=== PATIENT | male | born 1960 | race Caucasian/White ===

== ENCOUNTER → 2018-05-16 | Outpatient (CLI) | payer BC ==
[~2018-05-16] MED LIST: HYDR12.58 PO; LISI-167 PO; MELO7.5T31 PO; OMEG-76 PO; VITAMIN D3 GUMMY PO
[2018-05-16 14:59] LABS: INTERNATIONAL NORMALIZED RATIO 1.02 (0.93-1.1); PROTHROMBIN TIME 10.5 Seconds (9.6-11.5)
[2018-05-16 15:00] LABS: MICROSCOPIC NOT IND
[2018-05-16 15:01] LABS: BASOPHILS # (AUTO) 0.03 x10^3/uL (0-0.1); BASOPHILS % (AUTO) 0 % (0-1); EOSINOPHILS # (AUTO) 0.05 x10^3/uL (0-0.4); EOSINOPHILS % (AUTO) 1 % (1-7); LYMPHOCYTES # (AUTO) 1.79 x10^3/uL (1-3.4); LYMPHOCYTES % (AUTO) 24 % (22-44); MD NO; MEAN CORPUSCULAR HEMOGLOBIN 31.6 pg (27.5-34.5); MEAN CORPUSCULAR HGB CONC 34.6 g/dL (33.2-36.2); MEAN CORPUSCULAR VOLUME 91.3 fL (81-97); MEAN PLATELET VOLUME 8.4 fL (7.4-10.4); MONOCYTES # (AUTO) 0.58 x10^3/uL (0.2-0.8); MONOCYTES % (AUTO) 8 % (2-9); NEUTROPHILS # (AUTO) 4.95 x10^3/uL (1.8-6.8); NEUTROPHILS % (AUTO) 67 % (42-75); PLATELET COUNT 244 x10^3/uL (130-400); RED CELL DISTRIBUTION WIDTH 12.4 % (9.4-14.8)
[2018-05-16 15:03] LABS: CHLORIDE 103 mmol/L (98-107)
[2018-05-16 15:04] LABS: ALBUMIN 4.5 g/dL (3.4-5.0); ANION GAP 5 mmol/L (5-15); CALCIUM 9.2 mg/dL (8.5-10.1)
[2018-05-16 15:05] LABS: CULTURE INDICATED? NO
[2018-05-16 15:08] LABS: ALANINE AMINOTRANSFERASE 50 U/L (12-78); ALKALINE PHOSPHATASE 72 U/L (45-117); BILIRUBIN,TOTAL 0.9 mg/dL (0.2-1.0); CREATININE 1.25 mg/dL (0.7-1.3); TOTAL PROTEIN 7.9 g/dL (6.4-8.2)
[2018-05-16 16:24] LABS: HEMOGLOBIN A1C 5.4 % (4.2-6.3)
== END | disposition home or self-care (01) ==
LOC: STAR 13:37
PROVIDERS: ATTEND Orthopaedic Surgery
DX: Z01.818 Encounter for other preprocedural examination (principal); M16.12 Unilateral primary osteoarthritis, left hip
CPT/HCPCS: 36415; 80053; 81003; 83036; 85025; 85610; 85730; 87081; 87806; 93005; G0475

== ENCOUNTER 2018-06-05 05:20 | Inpatient (IN) | payer BC ==
[2018-05-16 14:10] VITALS: BP 149/95
[~2018-06-05] VITALS: Ht 170.2 cm; Wt 87.0 kg
[2018-06-05] MEDS ORDERED: LACTATED RINGERS 1,000 ML IV SCH (05:45)
[2018-06-05] MEDS ORDERED: LIDOCAINE-MPF 1%, 2ML INFIL ONE (06:00)
[2018-06-05] MEDS ORDERED: GABAPENTIN 300 MG CAPSULE PO ONE (06:00)
[2018-06-05] MEDS ORDERED: ACETAMINOPHEN 500 MG TABLET PO ONE (06:00)
[2018-06-05] MEDS ORDERED: TRANEXAMIC ACID 100 MG/ML, 10ML ONE ×4 (06:14)
[2018-06-05] MEDS ORDERED: KETOROLAC 60 MG/2 ML ONE (06:14)
[2018-06-05] MEDS ORDERED: ROPIvacaine/PF 0.2%, 20 ML ONE (06:14)
[2018-06-05] MEDS ORDERED: EPINEPHRINE 1 MG/ML, 1ML ONE (06:15)
[2018-06-05] MEDS ORDERED: LIDOCAINE GEL 2%, 5ML ONE ×2 (06:50→07:43)
[2018-06-05] MEDS ORDERED: MIDAZOLAM 1 MG/ML, 2ML ONE ×2 (06:52→08:45)
[2018-06-05] MEDS ORDERED: FENTANYL PF 250 MCG/5ML ONE (06:52)
[2018-06-05] MEDS ORDERED: TRANEXAMIC ACID 1,000 MG in SODIUM CHLORIDE 0.9% 100 ML IVPB ONE (07:00)
[2018-06-05] MEDS ORDERED: DIPHENHYDRAMINE 50 MG CAPSULE PO PRN (07:00)
[2018-06-05] MEDS ORDERED: SENNA/DOCUSATE TABLET PO PRN (07:00)
[2018-06-05] MEDS ORDERED: OXYcodone IR 5MG TABLET PO PRN (07:00)
[2018-06-05] MEDS ORDERED: ONDANSETRON 2MG/ML, 2ML IV PRN (07:00)
[2018-06-05] MEDS ORDERED: MAGNESIUM HYDROXIDE 8%, 30ML UDC PO PRN (07:00)
[2018-06-05] MEDS ORDERED: DIAZEPAM 5 MG TABLET PO PRN (07:00)
[2018-06-05] MEDS ORDERED: HYDROmorphone 2 MG/ML, 1ML IV PRN (07:00)
[2018-06-05] MEDS ORDERED: LABETALOL 5MG/ML, 20ML ONE (07:34)
[2018-06-05] MEDS ORDERED: ONDANSETRON 2MG/ML, 2ML ONE (07:42)
[2018-06-05] MEDS ORDERED: DEXAMETHASONE 4 MG/ML, 1ML ONE (07:42)
[2018-06-05] MEDS ORDERED: PROPOFOL 10 MG/ML, 20ML ONE (07:42)
[2018-06-05] MEDS ORDERED: ROCURONIUM 10MG/ML,5ML ONE (07:42)
[2018-06-05] MEDS ORDERED: NEOSTIGMINE 1 MG/ML, 10ML ONE (07:42)
[2018-06-05] MEDS ORDERED: GLYCOPYRROLATE 0.2MG/1ML, 5ML ONE (07:42)
[2018-06-05] MEDS ORDERED: CEFAZOLIN 1,000 MG ONE (07:42)
[2018-06-05] MEDS ORDERED: SUCCINYLCHOLINE 20 MG/ML, 10ML ONE (07:42)
[2018-06-05] MEDS ORDERED: ONDANSETRON ODT 8 MG ONE ×2 (07:43)
[2018-06-05] MEDS ORDERED: PROMETHAZINE 25 MG/ML, 1ML IV PRN (08:00)
[2018-06-05] MEDS ORDERED: METOCLOPRAMIDE 5 MG/ML, 2ML IV PRN (08:00)
[2018-06-05] MEDS ORDERED: OXYcodone 5 MG/5 ML ORAL.SOL UDC PO PRN (08:00)
[2018-06-05] MEDS ORDERED: LABETALOL 5MG/ML, 20ML IV PRN (08:00)
[2018-06-05] MEDS ORDERED: MEPERIDINE/PF 25MG/0.5ML IVPush PRN (08:00)
[2018-06-05] MEDS ORDERED: SCOPOLAMINE PATCH, 1.5MG PATCH.TD72 TD PRN (08:00)
[2018-06-05] MEDS ORDERED: HYDROmorphone 1 MG/ML, 1ML IV PRN (08:00)
[2018-06-05] MEDS ORDERED: EPHEDRINE 50 MG/ML, 1ML IM PRN (08:00)
[2018-06-05] MEDS ORDERED: ALBUTEROL/IPRATROPIUM 2.5MG/0.5MG, 3 ML NPPB PRN (08:00)
[2018-06-05] MEDS ORDERED: MORPHINE SULFATE 4 MG/ML, 1ML IVPush PRN (08:00)
[2018-06-05] MEDS ORDERED: hydrALAzine 20 MG/ML, 1ML IV PRN (08:00)
[2018-06-05] MEDS ORDERED: MIDAZOLAM 1 MG/ML, 2ML IV PRN (08:00)
[2018-06-05] MEDS ORDERED: ONDANSETRON ODT 8 MG PO PRN (08:00)
[2018-06-05] MEDS ORDERED: FENTANYL PF 100 MCG/2ML ONE (08:40)
[2018-06-05] MEDS: FENTANYL PF 100 MCG/2ML IV PRN ×2 (08:42→08:55)
[2018-06-05] MEDS ORDERED: HYDROmorphone 2 MG/ML, 1ML ONE (08:45)
[2018-06-05] MEDS ORDERED: OXYcodone 5 MG/5 ML ORAL.SOL UDC ONE (09:16)
[2018-06-05] MEDS ORDERED: METOCLOPRAMIDE 5 MG/ML, 2ML ONE (09:34)
[2018-06-05 10:46] VITALS: BP 123/82
[2018-06-05 12:30] VITALS: BP 115/70
[2018-06-05] MEDS: D5%-0.45NACL+KCL 20MEQ 1,000 ML IV SCH ×3 (12:57→21:28)
[2018-06-05] MEDS: TAMSULOSIN 0.4 MG CAP.ER.24H PO SCH (15:33)
[2018-06-05] MEDS: CEFAZOLIN PMX 1GM/50ML 50 ML IVPB SCH (15:34)
[2018-06-05] MEDS: DOCUSATE 100 MG CAPSULE PO SCH ×2 (15:35→20:06)
[2018-06-05] MEDS: ASPIRIN 81 MG TABLET EC PO SCH (18:40)
[2018-06-05 20:01] VITALS: BP 129/86
[2018-06-05] MEDS: ACETAMINOPHEN 650 MG/20.3 ML UDC PO PRN (20:06)
[2018-06-05] MEDS: ALUMINUM/MAG/SIMETHICONE 30 ML UDC PO PRN (20:17)
[2018-06-06 00:03] VITALS: BP 129/67
[2018-06-06] MEDS: CEFAZOLIN PMX 1GM/50ML 50 ML IVPB SCH (00:23)
[2018-06-06] MEDS: ACETAMINOPHEN 650 MG/20.3 ML UDC PO PRN ×2 (00:23→04:08)
[2018-06-06 04:19] VITALS: BP 138/86
[2018-06-06] MEDS ORDERED: DEXAMETHASONE 4 MG/ML, 1ML IVPush SCH (06:00)
[2018-06-06] MEDS: ASPIRIN 81 MG TABLET EC PO SCH ×2 (06:34→17:12)
[2018-06-06] MEDS: ONDANSETRON 4 MG TABLET PO PRN ×2 (06:40→21:12)
[2018-06-06 07:53] VITALS: BP 136/81
[2018-06-06] MEDS: DOCUSATE 100 MG CAPSULE PO SCH ×2 (08:47→21:30)
[2018-06-06] MEDS: LISINOPRIL 10 MG TABLET PO SCH (08:47)
[2018-06-06] MEDS: TAMSULOSIN 0.4 MG CAP.ER.24H PO SCH (08:47)
[2018-06-06] MEDS: HYDROCHLOROTHIAZIDE 12.5 MG CAPSULE PO SCH (08:47)
[2018-06-06] MEDS: D5%-0.45NACL+KCL 20MEQ 1,000 ML IV SCH ×2 (11:53→20:00)
[2018-06-06 13:10] VITALS: BP 120/73
[2018-06-06] MEDS: ALUMINUM/MAG/SIMETHICONE 30 ML UDC PO PRN ×2 (14:19→18:33)
[2018-06-06 19:34] VITALS: BP 128/75
[2018-06-07 01:38] VITALS: BP 142/75
[2018-06-07] MEDS ORDERED: PROMETHAZINE 25 MG/ML, 1ML IM ONE (02:00)
[2018-06-07] MEDS: D5%-0.45NACL+KCL 20MEQ 1,000 ML IV SCH ×2 (04:00→12:00)
[2018-06-07] MEDS ORDERED: PROMETHAZINE 25 MG/ML, 1ML IM PRN (05:30)
[2018-06-07] MEDS ORDERED: POLYETHYLENE GLYCOL 17 GM PACKET NG ONE (05:30)
[2018-06-07] MEDS: ASPIRIN 81 MG TABLET EC PO SCH ×2 (05:44→17:29)
[2018-06-07] MEDS: DOCUSATE 100 MG CAPSULE PO SCH (07:51)
[2018-06-07] MEDS: TAMSULOSIN 0.4 MG CAP.ER.24H PO SCH (07:51)
[2018-06-07] MEDS: LISINOPRIL 10 MG TABLET PO SCH (07:52)
[2018-06-07] MEDS: HYDROCHLOROTHIAZIDE 12.5 MG CAPSULE PO SCH (07:52)
[2018-06-07 08:02] VITALS: BP 126/78
[2018-06-07] MEDS ORDERED: OXYC5CAP2 PO (10:51)
[2018-06-07 12:20] VITALS: BP 112/70
[2018-06-07] MEDS: ALUMINUM/MAG/SIMETHICONE 30 ML UDC PO PRN (13:57)
[2018-06-07 16:12] VITALS: BP 128/85
[2018-06-07] MEDS ORDERED: OXYC5TAB3 PO (17:01)
[2018-06-07] MEDS ORDERED: DOCU-131 PO (17:05)
[2018-06-07] MEDS ORDERED: ASPI-621 PO (17:05)
[2018-06-07] MEDS ORDERED: ONDA4TAB10 PO (17:06)
[2018-06-07] MEDS ORDERED: TRAM50TA2 PO (17:07)
[2018-06-07] MEDS ORDERED: CELE200C PO (17:07)
[2018-06-07] MEDS ORDERED: DIAZ5TAB PO (17:08)
== END 2018-06-07 17:40 | disposition home or self-care (01) | DRG 470 ==
LOC: ORIP 05:20 → 4NOR 10:40
PROVIDERS: ADMIT Orthopaedic Surgery; ATTEND Orthopaedic Surgery
PROC: 0SRB03Z Replacement of Left Hip Joint with Ceramic Synthetic Substitute, Open Approach (ICD-10-PCS; principal; 2018-06-05 07:00)
DX: M87.052 Idiopathic aseptic necrosis of left femur (principal); M16.12 Unilateral primary osteoarthritis, left hip; K59.00 Constipation, unspecified
CPT/HCPCS: 36415; 72170; J3490; 85014; 85018; 86850; 86900; C1713; J0171; J0690; J1100; J1170; J1885; J2250; J2405; J2550; J2704; J2710; J2795; J3010; Q0162; C1776; J0330; J2765; J3480; J7120